=== PATIENT | female | born 1950 | race Caucasian/White ===

== ENCOUNTER 2018-12-04 09:02 | Day surgery (SDC) | payer OTHER ==
[2018-12-01 10:55] VITALS: BP 159/90
[~2018-12-04] VITALS: Ht 165.1 cm; Wt 88.7 kg
[~2018-12-04 09:02] MED LIST: BUPIVACAINE/PF-EPI 0.5% 1:200K ONE; CALC1CAP8 PO; FOLI-17 PO; METH2.5T PO; PRED5TAB PO; S-AD200T6 PO; VIT1CAPS42 PO; VITAMIN D3 PO
[2018-12-04] MEDS ORDERED: LACTATED RINGERS 1,000 ML IV SCH (09:27)
[2018-12-04 09:29] VITALS: BP 159/90
[2018-12-04] MEDS ORDERED: FENTANYL PF 100 MCG/2ML ONE (10:37)
[2018-12-04] MEDS ORDERED: MIDAZOLAM 1 MG/ML, 2ML ONE (10:37)
[2018-12-04] MEDS ORDERED: LABETALOL 5MG/ML, 20ML IV PRN (11:00)
[2018-12-04] MEDS ORDERED: OXYcodone 5 MG/5 ML ORAL.SOL UDC PO PRN (11:00)
[2018-12-04] MEDS ORDERED: HYDROmorphone 2 MG/ML, 1ML IVPush PRN (11:00)
[2018-12-04] MEDS ORDERED: hydrALAzine 20 MG/ML, 1ML IV PRN (11:00)
[2018-12-04] MEDS ORDERED: METOPROLOL 1 MG/ML, 5ML IV PRN (11:00)
[2018-12-04] MEDS ORDERED: PROCHLORPERAZINE 5 MG/ML, 2ML IV PRN (11:00)
[2018-12-04] MEDS ORDERED: PROMETHAZINE 25 MG/ML, 1ML IV PRN (11:00)
[2018-12-04] MEDS ORDERED: MEPERIDINE/PF 25MG/0.5ML IVPush PRN (11:00)
[2018-12-04] MEDS ORDERED: DIPHENHYDRAMINE 50 MG/ML, 1ML IVPush PRN (11:00)
[2018-12-04] MEDS ORDERED: FENTANYL PF 100 MCG/2ML IV PRN (11:00)
[2018-12-04] MEDS ORDERED: HALOPERIDOL 5 MG/ML IV PRN (11:00)
[2018-12-04] MEDS ORDERED: CEFAZOLIN 1,000 MG ONE (11:06)
[2018-12-04] MEDS ORDERED: KETOROLAC 30 MG/1 ML ONE (11:06)
[2018-12-04] MEDS ORDERED: PROPOFOL 10 MG/ML, 20ML ONE (11:06)
[2018-12-04] MEDS ORDERED: ONDANSETRON 2MG/ML, 2ML ONE (11:06)
[2018-12-04] MEDS ORDERED: EPHEDRINE 50 MG/ML, 1ML ONE (11:06)
[2018-12-04] MEDS ORDERED: DEXAMETHASONE 4 MG/ML, 1ML ONE (11:06)
== END 2018-12-04 13:35 | disposition home or self-care (01) ==
LOC: OUT 09:02
PROVIDERS: ATTEND Surgery
DX: C44.511 Basal cell carcinoma of skin of breast (principal); N61.0 Mastitis without abscess; M06.9 Rheumatoid arthritis, unspecified; Z79.52 Long term (current) use of systemic steroids; Z79.899 Other long term (current) drug therapy; Z87.891 Personal history of nicotine dependence; Z78.0 Asymptomatic menopausal state; Z90.710 Acquired absence of both cervix and uterus; Z98.890 Other specified postprocedural states
CPT/HCPCS: 19120; 76098; 88305; 93005; J0690; J1100; J1885; J2250; J2405; J2704; J3010; J7120

== ENCOUNTER 2019-12-21 14:24 | Emergency (ER) | payer OTHER ==
[~2019-12-21] VITALS: Ht 165.1 cm; Wt 90.0 kg
[~2019-12-21 14:24] MED LIST changes: -BUPIVACAINE/PF-EPI 0.5% 1:200K ONE
--- NOTE | 2019-12-21 15:26 | NUR ---
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
--- NOTE | 2019-12-21 15:55 | NUR ---
PT C/O INTERMITTENT LIGHTHEADEDNESS, WEAKNESS SINCE 1 AM TUESDAY THAT HAS GOTTEN WORSE WHEN IT OCCURS. + GAR NOW AT A 2/10. PT DENIES ROOM IS SPINNING. PT HAS HTN AT 183/97 AND HAS NOT BEEN ON MEDICATIONS DUE TO THEM SAYING IT WAS "BORDERLINE." GERMANIA BORGES AT BEDSIDE.
[2019-12-21] MEDS ORDERED: LORA-247 PO (16:29)
[2019-12-21] MEDS ORDERED: GABA300C PO (16:29)
[2019-12-21] MEDS ORDERED: SODIUM CHLORIDE FLUSH 10ML SYR IVF ONE (16:30)
[2019-12-21] MEDS ORDERED: SODIUM CHLORIDE 0.9% 1,000ML IVBOLUS ONE (16:30)
--- NOTE | 2019-12-21 16:30 | NUR ---
PT IN MRI.
[2019-12-21 16:54] LABS: ALBUMIN 4.1 g/dL (3.4-5.0); ANION GAP 5 mmol/L (5-15); CALCIUM 10.2 mg/dL (8.5-10.1); CHLORIDE 108 mmol/L (98-107); CREATININE 1.18 mg/dL (0.55-1.02)
[2019-12-21 16:58] LABS: TROPONIN I < 0.015 ng/mL (0.000-0.045)
[2019-12-21 17:02] LABS: BASOPHILS # (AUTO) 0.05 x10^3/uL (0-0.1); BASOPHILS % (AUTO) 1 % (0-1); EOSINOPHILS # (AUTO) 0.15 x10^3/uL (0-0.4); EOSINOPHILS % (AUTO) 2 % (1-7); LYMPHOCYTES # (AUTO) 2.22 x10^3/uL (1-3.4); LYMPHOCYTES % (AUTO) 24 % (22-44); MD NO; MEAN CORPUSCULAR HEMOGLOBIN 32.5 pg (27.0-34.8); MEAN CORPUSCULAR HGB CONC 33.3 g/dL (32.4-35.8); MEAN PLATELET VOLUME 8.2 fL (7.4-10.4); MONOCYTES # (AUTO) 0.93 x10^3/uL (0.2-0.8); MONOCYTES % (AUTO) 10 % (2-9); NEUTROPHILS # (AUTO) 5.82 x10^3/uL (1.8-6.8); NEUTROPHILS % (AUTO) 64 % (42-75); PLATELET COUNT 344 x10^3/uL (130-400); RED BLOOD COUNT 4.57 x10^6/uL (3.82-5.3); RED CELL DISTRIBUTION WIDTH 14.2 % (9.6-15.2)
[2019-12-21 17:15] LABS: MICROSCOPIC NOT IND
--- NOTE | 2019-12-21 17:18 | NUR ---
Break RN: ANNIKA Arana at bedside for recheck/explanation of results. Pt AO x 4. Skin PWD. Resp even and unlabored. Pt and at bedside verbalize understanding of POC. Pt on cont bp, cardiac and o2 monitors. Call light within reach.
[2019-12-21] MEDS ORDERED: MECLIZINE CHEWABLE 25 MG TAB PO ONE (17:30)
[2019-12-21] MEDS ORDERED: MECLIZINE CHEWABLE 25 MG TAB ONE (17:30)
[2019-12-21] MEDS ORDERED: LISINOPRIL 10 MG TABLET ONE (18:09)
--- NOTE | 2019-12-21 18:14 | NUR ---
PT HAD MANUAL BP OF 190/[address] CARSON. PT GIVEN LISINOPRIL PER DR. CARSON AND TO BE DC'D HOME.
[2019-12-21 18:15] VITALS: BP 190/100
[2019-12-21] MEDS ORDERED: LISINOPRIL 10 MG TABLET PO ONE (18:30)
== END 2019-12-21 18:46 | disposition home or self-care (01) ==
LOC: ED 18:44
DX: R42 Dizziness and giddiness (principal); R55 Syncope and collapse; I10 Essential (primary) hypertension; R11.2 Nausea with vomiting, unspecified; R00.0 Tachycardia, unspecified
CPT/HCPCS: 36415; 70551; 80048; 81003; 82040; 84484; 85025; 93005; 96360; 96361; 99285; J7030